=== PATIENT | male | born 1970 | race Caucasian/White ===

== ENCOUNTER 2018-12-04 11:38 | Emergency (ER) | payer OTHER ==
[~2018-12-04] VITALS: Ht 175.3 cm; Wt 154.2 kg
[~2018-12-04 11:38] MED LIST: VENTOLIN HFA 1818 GM INH
[2018-12-04] MEDS ORDERED: MOBIC15 MG PO (11:56)
[2018-12-04] MEDS ORDERED: HYDROCHLOROTH12.5 M1 PO (11:56)
[2018-12-04] MEDS ORDERED: KEFLEX500 M1 PO (13:25)
[2018-12-04 13:37] VITALS: BP 140/70
== END 2018-12-04 13:38 | disposition home or self-care (01) ==
LOC: M.ERS 11:38
DX: S61.012A Laceration without foreign body of left thumb without damage to nail, initial encounter (principal); W18.39XA Other fall on same level, initial encounter; Y93.89 Activity, other specified; Y92.89 Other specified places as the place of occurrence of the external cause; Y99.8 Other external cause status

== ENCOUNTER 2019-04-05 17:40 | Emergency (ER) | payer OTHER ==
[~2019-04-05] VITALS: Ht 175.3 cm; Wt 153.8 kg
[~2019-04-05 17:40] MED LIST changes: +HYDROCHLOROTH12.5 M1 PO; +KEFLEX500 M1 PO; +MOBIC15 MG PO
[2019-04-05 19:28] VITALS: BP 111/59
== END 2019-04-05 19:27 | disposition home or self-care (01) ==
LOC: M.ERS 17:40
DX: M25.531 Pain in right wrist (principal); I10 Essential (primary) hypertension

== ENCOUNTER 2019-06-20 17:28 | Emergency (ER) | payer OTHER ==
[~2019-06-20] VITALS: Ht 175.3 cm; Wt 145.2 kg
[2019-06-20 17:53] LABS: URINE BILIRUBIN NEGATIVE (Negative); URINE BLOOD NEGATIVE (Negative); URINE CLARITY CLEAR; URINE COLOR YELLOW; URINE GLUCOSE-RANDOM NEGATIVE (Negative); URINE KETONES NEGATIVE (Negative); URINE LEUKOCYTES-REFLEX NEGATIVE (Negative); URINE NITRITE-REFLEX NEGATIVE (Negative); URINE PROTEIN NEGATIVE (Negative); URINE SPECIFIC GRAVITY >= 1.030 (1.005-1.030)
[2019-06-20 18:10] LABS: ABSOLUTE BASOPHILS 0.1 thou/uL (0.0-0.2); ABSOLUTE EOSINOPHILS 0.1 thou/uL (0.0-0.7); ABSOLUTE LYMPHOCYTES 1.5 thou/uL (0.8-5.3); ABSOLUTE NEUTROPHILS 7.7 thou/uL (1.6-8.1); BASOPHILS 0.7 %; EOSINOPHILS 0.9 %; HEMATOCRIT 40.1 % (42.0-52.0); HEMOGLOBIN 13.7 gm/dL (14.0-18.0); LYMPHOCYTES 14.2 %; MCH 28.8 pg (26.0-34.0); MCHC 34.2 g/dL (28.0-37.0); MCV 84.3 fL (80.0-100.0); MONOCYTES 9.5 %; MPV 9.3 fl. (7.2-11.1); NUCLEATED RBCS 0 /100WBC; PLATELET COUNT* 261 thou/uL (150-400); POLYS 74.7 %; RBC 4.75 mil/uL (4.50-6.00); RDW-CV 13.3 % (10.5-14.5); WBC 10.2 thou/uL (4.0-11.0)
[2019-06-20 18:16] LABS: CALCIUM 7.9 mg/dL (8.5-10.1); POTASSIUM 3.7 mmol/L (3.5-5.1)
[2019-06-20 18:21] LABS: ALBUMIN 3.4 g/dL (3.4-5.0); TOTAL BILIRUBIN 0.3 mg/dL (<0.1-1.0); TOTAL PROTEIN 7.2 g/dL (6.4-8.2)
[2019-06-20 19:08] VITALS: BP 145/81
== END 2019-06-20 19:10 | disposition home or self-care (01) ==
LOC: M.ERS 17:28
PROVIDERS: Nurse Practitioner Family
DX: R10.31 Right lower quadrant pain (principal); R11.2 Nausea with vomiting, unspecified; I10 Essential (primary) hypertension; M19.90 Unspecified osteoarthritis, unspecified site

== ENCOUNTER 2020-07-19 19:17 | Emergency (ER) | payer OTHER ==
[~2020-07-19] VITALS: Ht 175.3 cm; Wt 152.0 kg
[2020-07-19] MEDS ORDERED: IBUPROFEN 800800 M1 PO (20:25)
[2020-07-19] MEDS ORDERED: NORCO 5-325 TA1 EAC2 PO (20:26)
[2020-07-19 20:35] VITALS: BP 144/74
== END 2020-07-19 20:35 | disposition home or self-care (01) ==
LOC: M.ERS 19:17
DX: M25.462 Effusion, left knee (principal); I10 Essential (primary) hypertension; M19.90 Unspecified osteoarthritis, unspecified site; Z79.899 Other long term (current) drug therapy

== ENCOUNTER 2021-07-02 22:30 | Emergency (ER) | payer OTHER ==
[~2021-07-02] VITALS: Ht 172.7 cm; Wt 154.2 kg
[~2021-07-02 22:30] MED LIST changes: +IBUPROFEN 800800 M1 PO; +NORCO 5-325 TA1 EAC2 PO
[2021-07-02 22:40] VITALS: BP 149/84
[2021-07-02 23:13] LABS: ABSOLUTE BASOPHILS 0.1 thou/uL (0.0-0.2); ABSOLUTE EOSINOPHILS 0.1 thou/uL (0.0-0.7); ABSOLUTE LYMPHOCYTES 1.9 thou/uL (0.8-5.3); ABSOLUTE MONOCYTES 1.2 thou/uL (0.0-1.2); ABSOLUTE NEUTROPHILS 7.2 thou/uL (1.6-8.1); BASOPHILS 0.7 %; EOSINOPHILS 1.1 %; HEMATOCRIT 42.4 % (42.0-52.0); HEMOGLOBIN 13.8 gm/dL (14.0-18.0); MCH 27.1 pg (26.0-34.0); MCHC 32.6 g/dL (28.0-37.0); MCV 83.2 fL (80.0-100.0); MONOCYTES 11.8 %; MPV 8.3 fl. (7.2-11.1); NUCLEATED RBCS 0 /100WBC; PLATELET COUNT* 346 thou/uL (150-400); POLYS 68.4 %; RDW-CV 14.1 % (10.5-14.5); WBC 10.6 thou/uL (4.0-11.0)
[2021-07-02 23:15] LABS: CALCIUM 8.5 mg/dL (8.5-10.1); CREATININE 1.2 mg/dL (0.6-1.3); POTASSIUM 3.7 mmol/L (3.5-5.1)
[2021-07-02 23:20] LABS: ALBUMIN 3.5 g/dL (3.4-5.0); TOTAL BILIRUBIN 0.4 mg/dL (<0.1-1.0); TOTAL PROTEIN 7.6 g/dL (6.4-8.2)
[2021-07-02 23:22] LABS: INFLUENZA A ANTIGEN Negative (Negative); INFLUENZA B ANTIGEN Negative (Negative)
[2021-07-02] MEDS ORDERED: MEDROLDOSEPACK PO (23:30)
[2021-07-02] MEDS ORDERED: PROAIR HFA8.5 GM INH (23:30)
[2021-07-02] MEDS ORDERED: TESSALON PERLE100 MG PO (23:30)
== END 2021-07-02 23:41 | disposition home or self-care (01) ==
LOC: M.ERS 22:30
PROVIDERS: Physician Assistant
DX: J20.9 Acute bronchitis, unspecified (principal); Z20.822 Contact with and (suspected) exposure to COVID-19; I10 Essential (primary) hypertension; M19.90 Unspecified osteoarthritis, unspecified site; Z79.899 Other long term (current) drug therapy

== ENCOUNTER 2021-07-18 15:36 | Emergency (ER) | payer OTHER ==
[~2021-07-18] VITALS: Ht 175.3 cm; Wt 140.6 kg
[~2021-07-18 15:36] MED LIST changes: +MEDROLDOSEPACK PO; +PROAIR HFA8.5 GM INH; +TESSALON PERLE100 MG PO
[2021-07-18 19:00] VITALS: BP 146/88
== END 2021-07-18 19:00 | disposition home or self-care (01) ==
LOC: M.ERS 15:36
DX: Z20.822 Contact with and (suspected) exposure to COVID-19 (principal); I10 Essential (primary) hypertension; M19.90 Unspecified osteoarthritis, unspecified site; Z79.899 Other long term (current) drug therapy